=== PATIENT | male | born 1990 | race Caucasian/White ===

== ENCOUNTER → 2021-05-29 11:38 | Outpatient (CLI) | payer OTHER, SELFPAY ==
[2021-05-29 12:41] LABS: Mean Corpuscular HGB Conc 34.1 % (30-36); Mean Corpuscular Volume 82.7 fL (80-100); Neutrophils Percent Auto 55.3 % (50-75); White Blood Cell Count 7.2 X10^3/uL (4.5-11.0)
[2021-05-29 12:55] LABS: Alkaline Phosphatase 56 U/L (38-126); Glucose 85 mg/dL (70-100); Potassium 4.1 mmol/L (3.4-5.1); Sodium 142 mmol/L (137-145)
[2021-05-29 13:25] LABS: TSH w/ Reflex to FT4 0.99 uIU/mL (0.47-4.68)
== END ==
PROVIDERS: PCP Family Medicine; Referring Provider Family Medicine; Visit Provider Family Medicine
DX: F32.A Depression, unspecified (principal); G43.909 Migraine, unspecified, not intractable, without status migrainosus; Z68.41 Body mass index [BMI] 40.0-44.9, adult
CPT/HCPCS: 36415; 80053; 80061; 84443; 85025

== ENCOUNTER → 2021-12-20 08:29 | Outpatient (CLI) | payer OTHER, SELFPAY ==
[2021-12-20 09:28] LABS: Cholesterol 225 mg/dL (140-199); HDL Cholesterol 32 mg/dL (40-60); LDL Cholesterol Calculated 169 mg/dL (<100); Triglycerides 122 mg/dL (35-150)
== END ==
PROVIDERS: PCP Family Medicine; Referring Provider Family Medicine; Visit Provider Family Medicine
DX: E78.5 Hyperlipidemia, unspecified (principal)
CPT/HCPCS: 36415; 80061

== ENCOUNTER → 2023-01-28 14:11 | Outpatient (CLI) | payer OTHER, SELFPAY ==
[2023-01-28 14:39] LABS: Semen Sperm Prescence Post-Vas Absent (ABSENT)
== END ==
PROVIDERS: PCP Family Medicine; Referring Provider Family Medicine; Visit Provider Family Medicine
DX: Z30.8 Encounter for other contraceptive management (principal); Z98.52 Vasectomy status
CPT/HCPCS: 89321

== ENCOUNTER → 2023-10-13 10:07 | Outpatient (CLI) | payer OTHER, SELFPAY ==
[2023-10-13 11:09] LABS: Add Manual Diff / Slide Review NO; Basophils Absolute Auto 100 /uL (0-100); Basophils Percent Auto 0.8 % (0-2); Eosinophils Absolute Auto 800 /uL (0-450); Eosinophils Percent Auto 9.4 % (2-4); Hematocrit 45.3 % (41-53); Hemoglobin 15.5 g/dL (13.5-17.5); Lymphocytes Absolute Auto 2600 /uL (1100-4500); Lymphocytes Percent Auto 32.1 % (25-40); Mean Corpuscular HGB Conc 34.2 % (30-36); Mean Corpuscular Hemoglobin 28.6 PG (26-34); Mean Corpuscular Volume 83.6 fL (80-100); Monocytes Absolute Auto 500 /uL (0-900); Monocytes Percent Auto 5.7 % (3-14); Neutrophils Absolute Auto 4200 /uL (1500-7000); Platelet Count 205 X10^3/uL (150-400); Red Blood Cell Count 5.42 X10^6/uL (4.5-5.9); Red Cell Distribution Width 13.7 % (11.6-14.8); White Blood Cell Count 8.1 X10^3/uL (4.5-11.0)
[2023-10-13 11:10] LABS: Hemoglobin A1C% w Est Avg Glu 5.4 % (4.0-6.0)
[2023-10-13 11:44] LABS: Alanine Aminotransferase 41 IU/L (<50); Albumin 4.3 g/dL (3.5-5.0); Albumin Globulin Ratio 1.5 (1.0-2.8); Alkaline Phosphatase 69 U/L (38-126); Aspartate Aminotransferase 28 IU/L (17-59); BUN Creatinine Ratio 27.1 (6-22); Bilirubin Total 0.7 mg/dL (0.2-1.3); Blood Urea Nitrogen 16 mg/dL (9-20); Calcium 8.9 mg/dL (8.4-10.2); Carbon Dioxide 24 mmol/L (22-32); Chloride 109 mmol/L (98-107); Cholesterol 256 mg/dL (140-199); Estimated Glomerular Filt Rate > 60 mL/min (>60); Globulin 2.9 g/dL (1.7-4.1); Glucose 88 mg/dL (70-100); HDL Cholesterol 40 mg/dL (40-60); HEMOLYSIS < 15 (0-50); LDL Cholesterol Calculated 193 mg/dL (<100); Potassium 4.2 mmol/L (3.4-5.1); Sodium 140 mmol/L (137-145); Total Protein 7.2 g/dL (6.3-8.2); Triglycerides 114 mg/dL (35-150)
[2023-10-13 12:13] LABS: TSH w/ Reflex to FT4 1.24 uIU/mL (0.47-4.68)
== END ==
LOC: LAB 10:08
PROVIDERS: PCP Family Medicine; Referring Provider Family Medicine; Visit Provider Family Medicine
DX: E78.5 Hyperlipidemia, unspecified (principal); E66.9 Obesity, unspecified
CPT/HCPCS: 36415; 80053; 80061; 83036; 84443; 85025

== ENCOUNTER 2024-09-01 14:33 | Emergency (ER) | payer BC, SELFPAY ==
[2024-09-01 14:49] VITALS: BP 183/71; PULSE 82; RESP 20; TEMP 37; O2SAT 95; BMI 43.2
--- NOTE | 2024-09-01 15:44 | PC.NURSE ---
Pt reports lower back pain and abdominal pain. States the back pain started Friday afternoon and the abdominal pain started yesterday morning. P states the lower back pain is felt most in his buttocks and lower back while the abdominal pain is radiated under his stomach. Pt states the pain is worse when siting and laying down. Pt states he has no numbness or tingling. Pt states he has no loss of bladder or bowel. Pt does state he feels more burning when he urinates and feels he has been having to do urinate more often over the past 2-3 days. Pt states eating has not bothered him. Denies N/V/D. Pt states the pain moves around his back and radiates. Denies neck or head pain. States he had chills this morning but no recorded temperature.
--- NOTE | 2024-09-01 15:58 | ED_ITS ---
HPI - Back Pain/Injury <Sera Saldaña PA-C - Last Filed: 09/01/24 18:05> General Chief Complaint: Back Pain/Injury Stated Complaint: lower back, abd px sent by [facility] Time Seen by Provider: 09/01/24 15:44 Source: patient History of Present Illness HPI Narrative: Mr. Salguero is a very pleasant 34-year-old male with past medical history of hypertension, hyperlipidemia, obesity who presents to the emergency department for bilateral low back, buttocks pain radiating to the bilateral groins x 3 days. Patient states pain started Friday afternoon with no precipitating injury. States that he has associated symptoms of decreased appetite and urinary frequency and occasional burning. Pain is greatly exacerbated by sitting or lying down. He denies nausea, vomiting, chest pain, shortness of breath, fevers, chills, flu-like symptoms, hematuria, penile discharge, scrotal swelling pain or discoloration. Denies abdominal bulge or hernia. Denies history of any surgeries. Reports that he took some ibuprofen which helped at 1st but it has not been helping since. He denies any numbness tingling weakening, bowel or bladder incontinence, pain radiation down the legs. Related Data Previous Rx's Medication Instructions Recorded lidocaine 5 % topical patch 1 patch topical DAILY #30 ea 09/01/24 (Lidoderm) methocarbamol 500 mg tablet 500 mg PO TID PRN muscle spasm #30 09/01/24 tabs naproxen 500 mg tablet 500 mg PO BID PRN pain #30 tabs 09/01/24 Allergies Allergy/AdvReac Type Severity Reaction Status Date / Time No Known Drug Allergies Allergy Unverified 09/01/24 15:00 Review of Systems <Sera Saldaña PA-C - Last Filed: 09/01/24 18:05> Review of Systems ROS Unobtainable: All systems reviewed & are unremarkable except as noted in HPI and below Patient History <Sera Saldaña PA-C - Last Filed: 09/01/24 18:05> Medical History Inflamed acrochordon Sleep apnea Restless leg syndrome Headache Shoulder pain Chronic back pain Hyperlipidemia Migraine Depression Family History Father Cancer Mother Stroke Sister History of being obese Sister Scoliosis Social History Smoking Status: Never smoker Smoking Status: Never smoker Exam <Sera Saldaña PA-C - Last Filed: 09/01/24 18:05> Narrative Exam Narrative: GENERAL: 34 year old patient appears stated age. Obese patient, in no acute distress. HEAD: Atraumatic. Normocephalic. NECK: Trachea midline. Cervical ROM intact. CARDIOVASCULAR: Regular rate and rhythm. RESPIRATORY: ?Nonlabored respirations. ?Speaking in clear, full sentences. ?Clear to auscultation. Breath sounds equal bilaterally. No wheezes, rales, or rhonchi. ? GASTROINTESTINAL: Abdomen soft, protuberant, nondistended. No rebound or guarding. There is tenderness to palpation in the very low right and left quadrants. No CVA tenderness. EXTREMITIES: No edema or joint tenderness. BACK: Tenderness palpation and bilateral SI joint regions and lower lumbar regions, no midline tenderness or palpable deformities. Negative straight leg raise bilaterally. NEURO: AOx3. ?Clear speech. ?Moves all 4 extremities appropriately. SKIN: No rash or erythema of visible areas Initial Vital Signs Initial Vital Signs: Vital Signs Temperature 98.6 F 09/01/24 14:49 Pulse Rate 82 09/01/24 14:49 Respiratory Rate 20 09/01/24 14:49 Blood Pressure 183/71 H 09/01/24 14:49 Pulse Oximetry 95 09/01/24 14:49 Oxygen Delivery Method Room Air 09/01/24 14:49 <Terra Serrano MD - Last Filed: 09/01/24 18:59> Initial Vital Signs Initial Vital Signs: Vital Signs Temperature 98.6 F 09/01/24 14:49 Pulse Rate 82 09/01/24 14:49 Respiratory Rate 20 09/01/24 14:49 Blood Pressure 183/71 H 09/01/24 14:49 Pulse Oximetry 95 09/01/24 14:49 Oxygen Delivery Method Room Air 09/01/24 14:49 Course <Sera Saldaña PA-C - Last Filed: 09/01/24 18:05> Orders Ordered: ED Orders 09/01/24 15:53 Urine Microscopic Stat 09/01/24 15:58 Complete Blood Count AUTO DIFF Stat Comprehensive Metabolic Panel Stat Lipase Stat 09/01/24 16:26 CT abdomen pelvis w con Stat Discontinued Medications Sodium Chloride (Normal Saline 0.9%) 1,000 mls @ 1,000 mls/hr IV BOLUS ONE Stop: 09/01/24 17:25 Last Infusion: 09/01/24 17:56 Dose: 0 mls/hr Documented By: Admin: 09/01/24 17:07 Dose: 1,000 mls/hr Documented By: BOGDAN Ketorolac Tromethamine (Ketorolac 30 Mg/Ml Vial) 15 mg IV NOW ONE Stop: 09/01/24 16:27 Last Admin: 09/01/24 17:08 Dose: 15 mg Documented By: BOGDAN Vital Signs Vital signs: Vital Signs - 8 hr 09/01/24 14:49 09/01/24 17:55 Temperature 98.6 F Pulse Rate 82 76 Respiratory Rate 20 16 Blood Pressure 183/71 H 145/88 H Pulse Oximetry 95 94 Oxygen Delivery Method Room Air Room Air <Terra Serrano MD - Last Filed: 09/01/24 18:59> Orders Ordered: ED Orders 09/01/24 15:53 Urine Microscopic Stat 09/01/24 15:58 Complete Blood Count AUTO DIFF Stat Comprehensive Metabolic Panel Stat Lipase Stat 09/01/24 16:26 CT abdomen pelvis w con Stat Discontinued Medications Sodium Chloride (Normal Saline 0.9%) 1,000 mls @ 1,000 mls/hr IV BOLUS ONE Stop: 09/01/24 17:25 Last Infusion: 09/01/24 17:56 Dose: 0 mls/hr Documented By: Admin: 09/01/24 17:07 Dose: 1,000 mls/hr Documented By: BOGDAN Ketorolac Tromethamine (Ketorolac 30 Mg/Ml Vial) 15 mg IV NOW ONE Stop: 09/01/24 16:27 Last Admin: 09/01/24 17:08 Dose: 15 mg Documented By: BOGDAN Vital Signs Vital signs: Vital Signs - 8 hr 09/01/24 14:49 09/01/24 17:55 Temperature 98.6 F Pulse Rate 82 76 Respiratory Rate 20 16 Blood Pressure 183/71 H 145/88 H Pulse Oximetry 95 94 Oxygen Delivery Method Room Air Room Air MDM - Back Pain/Injury <Sera Saldaña PA-C - Last Filed: 09/01/24 18:05> Medical Records Attestation: I reviewed the patient's medical records. Lab Data 09/01/24 15:58 09/01/24 15:58 Labs: Lab Results 09/01/24 09/01/24 Range/Units 15:53 15:58 WBC 8.4 (4.5-11.0) X10^3/uL RBC 5.83 (4.5-5.9) X10^6/uL Hgb 16.6 (13.5-17.5) g/dL Hct 48.4 (41-53) % MCV 82.9 (80-100) fL MCH 28.4 (26-34) PG MCHC 34.2 (30-36) % RDW 13.5 (11.6-14.8) % Plt Count 201 (150-400) X10^3/uL Neut % (Auto) 52.6 (50-75) % Lymph % (Auto) 30.6 (25-40) % [place] % (Auto) 6.1 (3-14) % Eos % (Auto) 9.8 H (2-4) % Baso % (Auto) 0.9 (0-2) % Neut # (Auto) 4400 (8000-5892) /uL Lymph # (Auto) 2600 (5752-5510) /uL [place] # (Auto) 500 (0-900) /uL Eos # (Auto) 800 H (0-450) /uL Baso # (Auto) 100 (0-100) /uL Sodium 138 (137-145) mmol/L Potassium 4.0 (3.4-5.1) mmol/L Chloride 107 (98-107) mmol/L Carbon Dioxide 20 L (22-32) mmol/L BUN 16 (9-20) mg/dL Creatinine 0.68 (0.66-1.25) mg/dL Estimated GFR > 60 (>60) mL/min BUN/Creatinine Ratio 23.5 H (6-22) Glucose 87 (70-100) mg/dL Calcium 8.9 (8.4-10.2) mg/dL Total Bilirubin 0.9 (0.2-1.3) mg/dL AST 37 (17-59) IU/L ALT 51 H (<50) IU/L Alkaline Phosphatase 59 (38-126) U/L Total Protein 8.0 (6.3-8.2) g/dL Albumin 4.6 (3.5-5.0) g/dL Globulin 3.4 (1.7-4.1) g/dL Albumin/Globulin Ratio 1.4 (1.0-2.8) Lipase 65 (23-300) U/L Urine RBC None seen (0-5/HPF) Urine WBC None seen (0-5/HPF) Ur Squamous Epith Cells None seen (0-5/HPF) Amorphous Sediment 2+ Urine Bacteria Occasional (0-1) (None) Ur Culture Indicated? Cult not indicated Vol Urine Centrifuged 10ml (spun) Urine Dip Bedside Urine Glucose Negative Bedside Urine Bilirubin - Negative Bedside Urine Ketone - Negative Urine Specific [place] 1.015 Bedside Urine Occult Blood - Negative Bedside Urine pH 6.5 Bedside Urine Protein - Negative Bedside Urine Urobilinogen - Negative Bedside Urine Nitrite - Negative Bedside Urine Leukocytes - Negative Esterase Imaging Data CT scan - abdomen/pelvis: Radiologist's Impression: PROCEDURE: CT ABDOMEN PELVIS W CON INDICATIONS: BL low back, groin pain; SI joint region pain TECHNIQUE: After the administration of intravenous contrast, axial sections acquired from the lung bases to the pubic symphysis. Coronal and sagittal reformats were performed. For radiation dose reduction, the following was used: automated exposure control, adjustment of mA and/or kV according to patient size. COMPARISON: None. FINDINGS: Image quality: Diagnostic. Lower Chest: No significant findings. ABDOMEN: Liver: No solid mass. Numerous well-circumscribed hypodensities are seen scattered throughout liver parenchyma measures up to 8 mm in size and are too small to adequately characterize. Gallbladder: No radiopaque gallstones or wall thickening. Biliary ducts: No biliary dilation. Pancreas: No ductal dilation. Spleen: Size is within normal limits. Adrenal Glands: No adrenal nodules. Kidneys and Ureters: No hydronephrosis. No solid mass. No complex renal cystic lesion which requires follow up. Stomach and Bowel: Normal colonic caliber, without significant wall thickening. Appendix is visualized and is within normal limits. No abscess collection. Peritoneum: No abnormal intraperitoneal fluid. No free air. Ventral Wall: No significant ventral hernia. Abdominal Nodes: No retroperitoneal or mesenteric adenopathy by size criteria. Vessels: Aorta and inferior vena cava are normal in size. PELVIS: Pelvic Organs: Unremarkable. Bladder: No bladder wall thickening, accounting for underdistention. Pelvic Nodes: No enlarged lymph nodes. Miscellaneous: Small bilateral inguinal hernia are seen containing fat only. Bones: No aggressive osseous abnormality. Subchondral sclerosis adjacent to bilateral sacroiliac joints are seen. No bony erosion or ankylosis is noted. No acute vertebral body compression fracture. IMPRESSION: 1. No acute inflammatory process is seen in abdomen or pelvis. No free fluid or free air. 2. Numerous well-circumscribed subcentimeter hypodensities scattered in liver parenchyma and are too small to adequately characterize. Finding could represent small hepatic cysts. 3. Suggestion of bilateral sacroiliitis. No ankylosis is seen. [facility] Narrative Medical decision making narrative: 34-year-old male with past medical history of hypertension, hyperlipidemia, obesity who presents to the emergency department for bilateral low back, buttocks pain radiating to the bilateral groins x 3 days. Differential diagnosis includes but is not limited to sacroiliitis, lumbar radiculopathy, inguinal hernia, UTI, pyelonephritis, ureterolithiasis, nephrolithiasis, meralgia paresthetica, diverticulitis, appendicitis, cholecystitis, etc. On exam the patient is in no acute distress, nontoxic appearing, vital signs appropriate except for elevated blood pressure 183/71. Patient has some tenderness to palpation of the lower quadrants of the abdomen in addition to the low back and SI joint region. We will obtain abdominal labs, CT abdomen and pelvis with IV contrast as point of care UA was negative for blood or infection so lower suspicion for renal stone at this time. We will treat with IV fluids and Toradol this time, patient drove himself here in declines opioids. CT reveals no acute inflammatory process seen in the abdomen or pelvis. No free fluid or air. Numerous well circumscribed subcentimeter hypodensity scattered in liver parenchyma and are too small to adequately characterize. Findings could represent small hepatic cysts. Suggestion of bilateral sacroiliitis. No ankylosis seen. Small bilateral inguinal hernias are seen containing fat only. Labs reveal normal WBC count 8.4, hemoglobin 16.6, hematocrit 48.4. Normal platelets. Normal renal function and electrolytes. ALT slightly elevated at 51. UA negative for blood or infection. Patient's symptoms consistent with CT findings of sacroiliitis. We will prescribe naproxen, Robaxin, Lidoderm and also recommended acetaminophen, heat therapy, gentle exercise and follow up with PCP and/or Orthopedics. Discussed strict ED return precautions. Patient verbalized understanding of all information is agreeable with the plan. He is ambulatory and stable for discharge home. <Terra Serrano MD - Last Filed: 09/01/24 18:59> Lab Data Labs: Lab Results 09/01/24 09/01/24 Range/Units 15:53 15:58 WBC 8.4 (4.5-11.0) X10^3/uL RBC 5.83 (4.5-5.9) X10^6/uL Hgb 16.6 (13.5-17.5) g/dL Hct 48.4 (41-53) % MCV 82.9 (80-100) fL MCH 28.4 (26-34) PG MCHC 34.2 (30-36) % RDW 13.5 (11.6-14.8) % Plt Count 201 (150-400) X10^3/uL Neut % (Auto) 52.6 (50-75) % Lymph % (Auto) 30.6 (25-40) % [place] % (Auto) 6.1 (3-14) % Eos % (Auto) 9.8 H (2-4) % Baso % (Auto) 0.9 (0-2) % Neut # (Auto) 4400 (7664-7905) /uL Lymph # (Auto) 2600 (6839-7469) /uL [place] # (Auto) 500 (0-900) /uL Eos # (Auto) 800 H (0-450) /uL Baso # (Auto) 100 (0-100) /uL Sodium 138 (137-145) mmol/L Potassium 4.0 (3.4-5.1) mmol/L Chloride 107 (98-107) mmol/L Carbon Dioxide 20 L (22-32) mmol/L BUN 16 (9-20) mg/dL Creatinine 0.68 (0.66-1.25) mg/dL Estimated GFR > 60 (>60) mL/min BUN/Creatinine Ratio 23.5 H (6-22) Glucose 87 (70-100) mg/dL Calcium 8.9 (8.4-10.2) mg/dL Total Bilirubin 0.9 (0.2-1.3) mg/dL AST 37 (17-59) IU/L ALT 51 H (<50) IU/L Alkaline Phosphatase 59 (38-126) U/L Total Protein 8.0 (6.3-8.2) g/dL Albumin 4.6 (3.5-5.0) g/dL Globulin 3.4 (1.7-4.1) g/dL Albumin/Globulin Ratio 1.4 (1.0-2.8) Lipase 65 (23-300) U/L Urine RBC None seen (0-5/HPF) Urine WBC None seen (0-5/HPF) Ur Squamous Epith Cells None seen (0-5/HPF) Amorphous Sediment 2+ Urine Bacteria Occasional (0-1) (None) Ur Culture Indicated? Cult not indicated Vol Urine Centrifuged 10ml (spun) Urine Dip Bedside Urine Glucose Negative Bedside Urine Bilirubin - Negative Bedside Urine Ketone - Negative Urine Specific [place] 1.015 Bedside Urine Occult Blood - Negative Bedside Urine pH 6.5 Bedside Urine Protein - Negative Bedside Urine Urobilinogen - Negative Bedside Urine Nitrite - Negative Bedside Urine Leukocytes - Negative Esterase Discharge Plan Departure Patient Disposition: Home Clinical Impression: Bilateral sacroiliitis Instructions: DI for Low Back Pain Activity Restrictions/Additional Instructions: Dear Mr. Salguero, Thank you for coming to the emergency department today. Your CT scan reveals sacroiliitis which is inflammation of the SI joints. It also shows some small possible liver cyst that you should follow up with the primary care doctor to have further evaluated. Please rest, hydrate, use the prescribed naproxen in addition to [id number] acetaminophen/Tylenol for pain. You may also take the prescribed muscle relaxer be aware that this may make you drowsy so he should not take it if you are going to drive, work or drink alcohol. I have also prescribed topical lidocaine patches however if these are expensive at the pharmacy you can purchase them [id number] at a lower percentage of lidocaine. Please follow up with your primary care doctor, in addition you may follow up with [facility] at [phone] for further evaluation. Return to the emergency department if you develop any new or worsening symptoms fevers, chills, blood in your urine or difficulty urinating or any other concerns. Please follow up with your primary care doctor within the next 2-3 days for ER follow-up. (If you do not have a PCP you can call [phone]. ?to schedule an appointment with an [facility] Primary Care Provider) IF YOU DEVELOP ANY NEW OR WORSENING SYMPTOMS, RETURN TO THE ER! Please read the attached instructions, they highlight more specific treatments and interventions for you at home. Thank you for letting me participate in your care, Sera Saldaña PA-C Prescriptions: New naproxen 500 mg tablet 500 mg PO BID PRN (Reason: pain) Qty: 30 0RF Rx Instructions: Take with food/meal. methocarbamol 500 mg tablet 500 mg PO TID PRN (Reason: muscle spasm) Qty: 30 0RF Rx Instructions: Can take up to 1,000 mg per dose if needed. lidocaine [Lidoderm] 5 % adhesive patch,medicated 1 patch topical DAILY Qty: 30 0RF Rx Instructions: leave on most painful area for up to 12 hrs Referrals: Aurelio Pleitez MD [Primary Care Provider] - Stand Alone Forms: Patient Portal/API/Survey, Work Release Note ED Sign-out <Terra Serrano MD - Last Filed: 09/01/24 18:59> Cosign ED Attending Cosignature Attestation: I was immediately available in the department for consultation throughout this patient's visit. Terra Serrano MD
--- NOTE | 2024-09-01 16:26 | DI.CT.S_ITS ---
PROCEDURE: CT ABDOMEN PELVIS W CON INDICATIONS: BL low back, groin pain; SI joint region pain TECHNIQUE: After the administration of intravenous contrast, axial sections acquired from the lung bases to the pubic symphysis. Coronal and sagittal reformats were performed. For radiation dose reduction, the following was used: automated exposure control, adjustment of mA and/or kV according to patient size. COMPARISON: None. FINDINGS: Image quality: Diagnostic. Lower Chest: No significant findings. ABDOMEN: Liver: No solid mass. Numerous well-circumscribed hypodensities are seen scattered throughout liver parenchyma measures up to 8 mm in size and are too small to adequately characterize. Gallbladder: No radiopaque gallstones or wall thickening. Biliary ducts: No biliary dilation. Pancreas: No ductal dilation. Spleen: Size is within normal limits. Adrenal Glands: No adrenal nodules. Kidneys and Ureters: No hydronephrosis. No solid mass. No complex renal cystic lesion which requires follow up. Stomach and Bowel: Normal colonic caliber, without significant wall thickening. Appendix is visualized and is within normal limits. No abscess collection. Peritoneum: No abnormal intraperitoneal fluid. No free air. Ventral Wall: No significant ventral hernia. Abdominal Nodes: No retroperitoneal or mesenteric adenopathy by size criteria. Vessels: Aorta and inferior vena cava are normal in size. PELVIS: Pelvic Organs: Unremarkable. Bladder: No bladder wall thickening, accounting for underdistention. Pelvic Nodes: No enlarged lymph nodes. Miscellaneous: Small bilateral inguinal hernia are seen containing fat only. Bones: No aggressive osseous abnormality. Subchondral sclerosis adjacent to bilateral sacroiliac joints are seen. No bony erosion or ankylosis is noted. No acute vertebral body compression fracture. IMPRESSION: 1. No acute inflammatory process is seen in abdomen or pelvis. No free fluid or free air. 2. Numerous well-circumscribed subcentimeter hypodensities scattered in liver parenchyma and are too small to adequately characterize. Finding could represent small hepatic cysts. 3. Suggestion of bilateral sacroiliitis. No ankylosis is seen. Dictated by: Braxton Liriano M.D. on 09/01/2024 at 17:05 Approved by: Braxton Liriano M.D. on 09/01/2024 at 17:07
[2024-09-01 16:37] LABS: Add Manual Diff / Slide Review NO; Basophils Absolute Auto 100 /uL (0-100); Basophils Percent Auto 0.9 % (0-2); Eosinophils Absolute Auto 800 /uL (0-450); Eosinophils Percent Auto 9.8 % (2-4); Hematocrit 48.4 % (41-53); Hemoglobin 16.6 g/dL (13.5-17.5); Lymphocytes Absolute Auto 2600 /uL (1100-4500); Lymphocytes Percent Auto 30.6 % (25-40); Mean Corpuscular HGB Conc 34.2 % (30-36); Mean Corpuscular Hemoglobin 28.4 PG (26-34); Mean Corpuscular Volume 82.9 fL (80-100); Monocytes Absolute Auto 500 /uL (0-900); Monocytes Percent Auto 6.1 % (3-14); Neutrophils Absolute Auto 4400 /uL (1500-7000); Neutrophils Percent Auto 52.6 % (50-75); Platelet Count 201 X10^3/uL (150-400); Red Blood Cell Count 5.83 X10^6/uL (4.5-5.9); Red Cell Distribution Width 13.5 % (11.6-14.8); White Blood Cell Count 8.4 X10^3/uL (4.5-11.0)
[2024-09-01 16:38] LABS: Alanine Aminotransferase 51 IU/L (<50); Albumin 4.6 g/dL (3.5-5.0); Albumin Globulin Ratio 1.4 (1.0-2.8); Alkaline Phosphatase 59 U/L (38-126); Aspartate Aminotransferase 37 IU/L (17-59); BUN Creatinine Ratio 23.5 (6-22); Bilirubin Total 0.9 mg/dL (0.2-1.3); Blood Urea Nitrogen 16 mg/dL (9-20); Calcium 8.9 mg/dL (8.4-10.2); Carbon Dioxide 20 mmol/L (22-32); Chloride 107 mmol/L (98-107); Estimated Glomerular Filt Rate > 60 mL/min (>60); Globulin 3.4 g/dL (1.7-4.1); Glucose 87 mg/dL (70-100); HEMOLYSIS < 15 (0-50); Lipase 65 U/L (23-300); Sodium 138 mmol/L (137-145)
[2024-09-01] MEDS: SODIUM CHLORIDE 0.9% 1,000 ML 1000 ML IV (17:07)
[2024-09-01] MEDS: KETOROLAC 30 MG/ML VIAL 15 MG IV (17:08)
[2024-09-01 17:33] LABS: RBC Urine None Seen (0-5/HPF); Squamous Epithelial Cell Urine None Seen (0-5/HPF); Urine Volume 10mL (spun); WBC Urine None Seen (0-5/HPF)
[2024-09-01 17:34] LABS: Amorphous Sediment Urine 2+; Bacteria Urine Occasional (0-1); Culture Indicated Urine Cult Not Indicated
[2024-09-01 17:55] VITALS: BP 145/88; PULSE 76; RESP 16; O2SAT 94
== END 2024-09-01 17:56 | disposition home or self-care (01) ==
PROVIDERS: Emergency Provider Physician Assistant; PCP Family Medicine
DX: M46.1 Sacroiliitis, not elsewhere classified (principal); E66.9 Obesity, unspecified; Z68.41 Body mass index [BMI] 40.0-44.9, adult
CPT/HCPCS: 74177; 80053; 81003; 81015; 83690; 85025; 96361; 96374; 99283; 99284; J1885; Q9967

== ENCOUNTER → 2025-05-04 12:22 | Outpatient (CLI) | payer BC, SELFPAY ==
[2025-05-04 13:08] LABS: Add Manual Diff / Slide Review NO; Hematocrit 43.4 % (41-53); Hemoglobin 14.8 g/dL (13.5-17.5); Lymphocytes Absolute Auto 2500 /uL (1100-4500); Mean Corpuscular HGB Conc 34.2 % (30-36); Mean Corpuscular Hemoglobin 28.3 PG (26-34); Mean Corpuscular Volume 82.7 fL (80-100); Platelet Count 184 X10^3/uL (150-400)
[2025-05-04 13:15] LABS: Hemoglobin A1C% w Est Avg Glu 5.4 % (4.0-6.0)
[2025-05-04 13:33] LABS: Alanine Aminotransferase 39 IU/L (<50); Albumin 4.3 g/dL (3.5-5.0); Albumin Globulin Ratio 1.4 (1.0-2.8); Alkaline Phosphatase 58 U/L (38-126); Blood Urea Nitrogen 11 mg/dL (9-20); Calcium 8.7 mg/dL (8.4-10.2); Carbon Dioxide 23 mmol/L (22-32); Chloride 106 mmol/L (98-107); Cholesterol 246 mg/dL (140-199); Estimated Glomerular Filt Rate > 60 mL/min (>60); Globulin 3.1 g/dL (1.7-4.1); Glucose 78 mg/dL (70-99); HDL Cholesterol 37 mg/dL (40-60); HEMOLYSIS < 15 (0-50); Potassium 4.0 mmol/L (3.4-5.1); Sodium 139 mmol/L (137-145); Total Protein 7.4 g/dL (6.3-8.2); Triglycerides 174 mg/dL (35-150)
[2025-05-04 14:04] LABS: TSH w/ Reflex to FT4 1.12 uIU/mL (0.47-4.68)
== END ==
PROVIDERS: PCP Family Medicine; Referring Provider Family Medicine; Visit Provider Family Medicine
DX: E78.5 Hyperlipidemia, unspecified (principal); E66.9 Obesity, unspecified
CPT/HCPCS: 36415; 80053; 80061; 82043; 82172; 82570; 83036; 84443; 85025